=== PATIENT | male | born 1950 | race Caucasian/White ===

== ENCOUNTER 2021-08-20 18:01 | Observation (INO) ==
[2021-08-20 21:24] LABS: Hemoglobin 15.4 g/dL (12.9-16.9); Red Cell Distribution Width 14.2 % (11.5-14.5)
[2021-08-20 21:26] LABS: Hematocrit 47.6 % (37.5-50.1); Immature Platelets 10.1 % (1.1-6.1); Mean Corpuscular HGB Conc 32.4 g/dL (31.6-35.5); Mean Corpuscular Hemoglobin 28.2 pg (28.0-33.3); Mean Corpuscular Volume 87.2 fL (83.0-100.0); Mean Platelet Volume 11.4 fL (9.4-12.4); Nucleated Red Blood Cells 1.4 /100 WBC (0); Red Blood Count 5.46 M/mcL (4.19-5.50); White Blood Count 27.8 K/mcL (4.3-11.1)
[2021-08-20 21:28] LABS: Platelet Count 33 K/mcL (140-400)
[2021-08-20 21:43] LABS: Lymphocytes # 10.6 K/mcL (0.6-4.6); Monocytes # 9.5 K/mcL (0.0-1.3); Neutrophils # 7.8 K/mcL (1.6-8.9)
[2021-08-20 21:44] LABS: Platelet Estimate Marked Decrease (Normal); Polychromasia 1+ (Not Present); Reactive Lymphocytes Present (Not Present); Smudge Cells Present (Not Present)
[2021-08-20 21:48] LABS: Alanine Aminotransferase 31 Units/L (7-52); Albumin 4.1 g/dL (3.5-5.7); Albumin/Globulin Ratio 1.5 (1.1-2.2); Alkaline Phosphatase 54 Units/L (34-104); Aspartate Amino Transferase 43 Units/L (13-39); BUN/Creatinine Ratio 16 (6-26); Bilirubin,Total 0.6 mg/dL (0.3-1.0); Blood Urea Nitrogen 20 mg/dL (8-23); Calcium 9.5 mg/dL (8.6-10.3); Carbon Dioxide 27 mEq/L (23-29); Chloride 102 mEq/L (98-107); Globulin 2.7 g/dL (2.4-3.5); Glucose 141 mg/dL (70-105); Osmolality,Calculated 293 (280-300); Potassium 3.8 mEq/L (3.5-5.1); Sodium 139 mEq/L (136-145); Total Protein 6.8 g/dL (6.4-8.9); Troponin I < 0.03 ng/mL (< 0.04); eGFR For African Americans > 60 (> 60); eGFR For Non-African Americans 56 (> 60)
[2021-08-20 22:43] LABS: Bilirubin,Urine Negative (Negative); Blood,Urine Negative (Negative); Calcium Oxalate Crystals,Urine Present per hpf; Clarity,Urine Clear (Clear); Color,Urine Yellow (Yellow); Glucose,Urine (UA) Normal (Normal); Hyaline Casts,Urine Few per lpf (None Seen); Ketones,Urine Negative (Negative); Leukocyte Esterase,Urine Negative (Negative); Mucus,Urine Few per lpf (None-Few); Nitrite,Urine Negative (Negative); Protein,Urine 30 mg/dL (Neg-Trace); Specific Gravity,Urine 1.026 (1.010-1.025); WBC,Urine 0-3 per hpf (0-3)
[2021-08-21] MEDS ORDERED: Isovue-370 500 ML BOTTLE IVP ONE (01:27)
[2021-08-21] MEDS ORDERED: Ondansetron 4 MG/2 ML VIAL IVP PRN (04:21)
[2021-08-21] MEDS ORDERED: Acetaminophen 325 MG TABLET PO PRN (04:21)
[2021-08-21] MEDS ORDERED: Naloxone 0.4 MG/ML INJ IVP PRN (04:21)
[2021-08-21] MEDS ORDERED: 0.9 % Sodium Chloride 1,000 ML IVC SCH (04:30)
[2021-08-21 06:15] LABS: Hemoglobin 15.5 g/dL (12.9-16.9); Nucleated Red Blood Cells 1.3 /100 WBC (0)
[2021-08-21 06:18] LABS: Hematocrit 46.6 % (37.5-50.1); Immature Platelets 9.9 % (1.1-6.1); Mean Corpuscular HGB Conc 33.3 g/dL (31.6-35.5); Mean Corpuscular Hemoglobin 28.7 pg (28.0-33.3); Mean Corpuscular Volume 86.1 fL (83.0-100.0); Mean Platelet Volume 11.8 fL (9.4-12.4); Red Blood Count 5.41 M/mcL (4.19-5.50); Red Cell Distribution Width 14.3 % (11.5-14.5); White Blood Count 26.1 K/mcL (4.3-11.1)
[2021-08-21 06:23] LABS: INR 1.4; Prothrombin Time 15.6 Seconds (9.4-12.1)
[2021-08-21 06:29] LABS: Chol/HDL Ratio 3.6 (0-4.9); Magnesium 1.9 mg/dL (1.6-2.6)
[2021-08-21 06:32] LABS: BUN/Creatinine Ratio 19 (6-26); Blood Urea Nitrogen 21 mg/dL (8-23); Calcium 9.7 mg/dL (8.6-10.3); Carbon Dioxide 25 mEq/L (23-29); Chloride 103 mEq/L (98-107); Glucose 143 mg/dL (70-105); Osmolality,Calculated 295 (280-300); Sodium 140 mEq/L (136-145); eGFR For African Americans > 60 (> 60); eGFR For Non-African Americans > 60 (> 60)
[2021-08-21 06:35] LABS: Platelet Count 29 K/mcL (140-400)
[2021-08-21 06:42] LABS: Thyroid Stimulating Hormone 1.659 mcIU/mL (0.340-5.600)
[2021-08-21 07:43] LABS: Adenovirus Not Detected (Not Detect); Coronavirus 229E Not Detected (Not Detect); Coronavirus HKU1 Not Detected (Not Detect); Coronavirus NL63 Not Detected (Not Detect); Coronavirus OC43 Not Detected (Not Detect); Human Metapneumovirus Not Detected (Not Detect); Human Rhinovirus/Enterovirus Not Detected (Not Detect); Influenza A Subtype 2009 H1 Not Detected (Not Detect); Influenza B Not Detected (Not Detect); Parainfluenza Virus 1 Not Detected (Not Detect); Parainfluenza Virus 2 Not Detected (Not Detect); Parainfluenza Virus 3 Not Detected (Not Detect); Parainfluenza Virus 4 Not Detected (Not Detect); Respiratory Syncytial Virus Not Detected (Not Detect); SARS-CoV-2 Not Detected (Not Detect)
[2021-08-21 07:44] LABS: Bordetella Pertussis Not Detected (Not Detect); Chlamydophila pneumoniae Not Detected (Not Detect); Mycoplasma pneumoniae Not Detected (Not Detect)
[2021-08-21 10:12] LABS: Folate 20.7 ng/mL (3.0-16.0)
[2021-08-21 11:17] LABS: Hepatitis B Surface Antigen Nonreactive (Nonreactive)
[2021-08-21 11:45] LABS: Hepatitis C Virus Antibody Nonreactive (Nonreactive)
[2021-08-21 11:46] LABS: Hepatitis B Core IgM Nonreactive (Nonreactive)
[2021-08-21 11:47] LABS: HIV-1&2 Antibody & p24 Ag Nonreactive (Nonreactive); Hepatitis A Antibody IgM Nonreactive (Nonreactive)
[2021-08-21 11:50] LABS: Eosinophils # 0.8 K/mcL (0.0-0.6); Lymphocytes # 9.1 K/mcL (0.6-4.6); Monocytes # 1.8 K/mcL (0.0-1.3); Neutrophils # 7.6 K/mcL (1.6-8.9)
[2021-08-21 11:52] LABS: Platelet Estimate Marked Decrease (Normal); Reactive Lymphocytes Present (Not Present)
[2021-08-21] MEDS ORDERED: GADOBUTROL 30 MMOL/30 ML VIAL IVP ONE (13:30)
[2021-08-21 14:18] LABS: Uric Acid 12.4 mg/dL (2.3-7.6)
[2021-08-21 17:15] VITALS: BP 129/74; PULSE 100; TEMP 98.6; O2SAT 90
[2021-08-22] MEDS ORDERED: Furosemide 20 MG TABLET PO SCH (09:00)
[2021-08-22] MEDS ORDERED: Cyanocobalamin (B-12) 1,000 MCG TABLET PO SCH (09:00)
[2021-08-22] MEDS ORDERED: lisinopriL 10 MG TABLET PO SCH (09:00)
[2021-08-22] MEDS ORDERED: Ascorbic Acid 500 MG TABLET PO SCH (09:00)
== END 2021-08-21 18:27 | disposition hospice, home (50) ==
LOC: 3ANU 18:01 → EMEROOARM 18:01 → SUATTDRO 08-21 04:10 → 3ANU 08-21 05:10
PROVIDERS: ADMIT Internal Medicine; ATTEND Family Medicine